=== PATIENT | male | born 1950 | race Hispanic/Latino ===

== ENCOUNTER 2019-12-01 10:27 | Outpatient (CLI) | payer MEDICARE, OTHER ==
--- NOTE | 2019-12-01 10:53 | RAD ---
Right lower leg 2 views HISTORY: Pain. FINDINGS: Tibia and fibula are intact. No acute fracture, dislocation, or aggressive osseous erosions. No radiopaque foreign bodies are evident. IMPRESSION : No abnormalities are demonstrated.
== END 2019-12-01 10:28 | disposition home or self-care (01) ==
LOC: BICRAD 10:27
PROVIDERS: ATTEND Family Medicine
DX: M79.661 Pain in right lower leg (principal)
CPT/HCPCS: 36415; 80053; 80061; 81001; 85025

== ENCOUNTER 2024-02-14 11:05 | Observation (INO) | payer MEDICARE ==
[2024-02-14 11:45] LABS: #Basophils 0.03 10x3/uL (0.0-0.2); #Eosinphils Less than 0.03 10x3/uL (0.0-0.7); %Basophils 0.6 % (0.0-1.0); %Lymphocytes 16.5 % (21.0-51.0); %Monocytes 7.3 % (0.0-10.0); %Neutrophils 75.4 % (42.0-75.0); Hematocrit 38.2 % (42.0-52.0); Hemoglobin 12.6 g/dL (14.0-18.0); Mean Corpuscular Hemoglobin 29.1 pg (27.0-31.0); Mean Corpuscular Volume 88.2 fL (78.0-98.0); Mean Platelet Volume 9.9 fL (7.4-10.4); Platelet Count 141 10x3/uL (130-400); RBC Distribution Width 14.4 % (11.5-14.5); Red Blood Cell (RBC) Count 4.33 mill/uL (4.70-6.10)
[2024-02-14 12:47] LABS: ALT (SGPT) 55 U/L (8-55); AST (SGOT) 62 U/L (5-34); Albumin 3.5 g/dL (3.4-4.8); Alkaline Phosphatase 104 U/L (40-110); Anion Gap 10 mmol/L (10-20); BUN (Urea Nitrogen) 12 mg/dL (8.4-25.7); Bilirubin, Total 0.5 mg/dL (0.2-1.2); Calc. Creatinine Clearance 0 mL/min (70-130); Calcium 9.1 mg/dL (7.8-10.44); Carbon Dioxide 25 mmol/L (23-31); Chloride 111 mmol/L (98-107); Estimated GFR 77; Globulin 3.2 g/dL (2.4-3.5); Glucose 133 mg/dL (83-110); Lipase 29 U/L (8-78); Potassium 4.1 mmol/L (3.5-5.1); Protein, Total 6.7 g/dL (5.8-8.1); Sodium 142 mmol/L (136-145)
[2024-02-14 13:50] LABS: Troponin I Less than 0.010 ng/mL (< 0.028)
[2024-02-14] MEDS ORDERED: Aspirin Chewable 81 MG TAB ONE (15:06)
[2024-02-14] MEDS ORDERED: Nitroglycerin 2% Ointment 1 INCH/1 GM Packet ONE (15:06)
[2024-02-14] MEDS ORDERED: Nitroglycerin 0.4 MG TAB (25 Tab Bottle) SL PRN (16:44)
[2024-02-14 17:32] LABS: Magnesium 1.9 mg/dL (1.6-2.6)
[2024-02-14 17:37] LABS: Troponin I 0.011 ng/mL (< 0.028)
[2024-02-14] MEDS ORDERED: Magnesium 2 GM/50 ML BAG (IN WATER) ONE (20:13)
[2024-02-14] MEDS: Magnesium 2 GM/50 ML(in water) 2 GM in Premix 1 BAG IVPB SCH (20:30)
[2024-02-14 21:02] LABS: Troponin I Less than 0.010 ng/mL (< 0.028)
[2024-02-14 21:26] VITALS: BMI 23.7
[2024-02-14] MEDS: Tamsulosin HCl 0.4 MG CAP PO SCH (21:55)
[2024-02-15] MEDS: Mesalamine DR 400 mg Capsule PO SCH (08:31)
[2024-02-15] MEDS: Acetaminophen 325 MG TAB PO PRN (21:30)
[2024-02-16] MEDS ORDERED: Regadenoson 0.4 MG/5 ML SYRINGE ONE (09:40)
[2024-02-16 12:13] VITALS: BP 127/75; TEMP 97.2
== END 2024-02-16 13:09 | disposition home or self-care (01) ==
LOC: ERS 11:05 → ERHOLD 16:34 → 2SW 21:18
PROVIDERS: ADMIT Internal Medicine; ATTEND Internal Medicine
PROC: B246ZZZ Ultrasonography of Right and Left Heart (ICD-10-PCS; principal; 2024-02-14)
DX: R07.89 Other chest pain (principal); I10 Essential (primary) hypertension; N40.0 Benign prostatic hyperplasia without lower urinary tract symptoms; I12.9 Hypertensive chronic kidney disease with stage 1 through stage 4 chronic kidney disease, or unspecified chronic kidney disease; N18.2 Chronic kidney disease, stage 2 (mild); D63.1 Anemia in chronic kidney disease; E83.42 Hypomagnesemia; Z87.19 Personal history of other diseases of the digestive system; Z98.890 Other specified postprocedural states; F17.220 Nicotine dependence, chewing tobacco, uncomplicated; Z79.899 Other long term (current) drug therapy
CPT/HCPCS: 71046; 78452; 80053; 83690; 83735; 84484 ×2; 85025; 93005; 93017; 93306; 94760 ×2; 99285; A9502; J2785 ×2; J3475; 36415; 96374; G0378

== ENCOUNTER 2024-04-20 14:49 | Outpatient (CLI) | payer MEDICARE | END 2024-04-20 14:50 | disposition home or self-care (01) | LOC: BICULT 14:49 | PROVIDERS: ATTEND Internal Medicine Nephrology | DX: N28.1 Cyst of kidney, acquired (principal); N32.89 Other specified disorders of bladder | CPT/HCPCS: 76770 ==

== ENCOUNTER 2024-05-11 09:20 | Outpatient (CLI) | payer MEDICARE ==
[2024-05-11 10:19] LABS: #Basophils 0.05 10x3/uL (0.0-0.2); %Basophils 0.8 % (0.0-1.0); %Eosinophils 0.7 % (0.0-10.0); %Lymphocytes 12.8 % (21.0-51.0); %Monocytes 7.9 % (0.0-10.0); %Neutrophils 77.3 % (42.0-75.0); Hematocrit 41.7 % (42.0-52.0); Hemoglobin 13.5 g/dL (14.0-18.0); Mean Corpuscular HGB CONC 32.4 g/dL (32.0-36.0); Mean Corpuscular Hemoglobin 29.2 pg (27.0-31.0); Mean Corpuscular Volume 90.3 fL (78.0-98.0); Mean Platelet Volume 9.5 fL (7.4-10.4); Platelet Count 169 10x3/uL (130-400); RBC Distribution Width 13.2 % (11.5-14.5); Red Blood Cell (RBC) Count 4.62 mill/uL (4.70-6.10)
[2024-05-11 10:39] LABS: ALT (SGPT) 40 U/L (8-55); AST (SGOT) 40 U/L (5-34); Albumin 3.4 g/dL (3.4-4.8); Alkaline Phosphatase 88 U/L (40-110); Anion Gap 10 mmol/L (10-20); BUN (Urea Nitrogen) 9 mg/dL (8.4-25.7); Bilirubin, Direct 0.3 mg/dL (0.1-0.3); Calc. Creatinine Clearance 0 mL/min (70-130); Calcium 9.3 mg/dL (7.8-10.44); Carbon Dioxide 29 mmol/L (23-31); Chloride 106 mmol/L (98-107); Estimated GFR 87; Globulin 3.6 g/dL (2.4-3.5); Glucose 114 mg/dL (83-110); Potassium 4.1 mmol/L (3.5-5.1); Sodium 141 mmol/L (136-145)
== END 2024-05-11 09:21 | disposition home or self-care (01) ==
LOC: LABBT 09:20
PROVIDERS: ATTEND Internal Medicine Cardiovascular Disease
DX: Z01.818 Encounter for other preprocedural examination (principal)
CPT/HCPCS: 80053; 80076; 85025; 93005; 93010

== ENCOUNTER 2024-05-18 05:50 | Day surgery (SDC) | payer MEDICARE ==
[2024-05-11 09:29] VITALS: BMI 22.2
[2024-05-18 07:09] LABS: Cardiac Risk 5.2 (Less than 4.5)
[2024-05-18] MEDS ORDERED: fentaNYL 50 mcg/mL 1 mL Vial ONE (08:26)
[2024-05-18] MEDS ORDERED: Nitroglycerin 50 MG/250 ML BOT 250 ML ONE (08:26)
[2024-05-18] MEDS ORDERED: Heparin 10,000 UNITS/ 10 ML VIAL ONE (08:26)
[2024-05-18] MEDS ORDERED: Midazolam HCl 2 mg/2 ml Vial ONE (08:26)
[2024-05-18] MEDS ORDERED: Verapamil 5 MG/2 ML VIAL ONE (08:26)
[2024-05-18] MEDS ORDERED: Iopamidol 370 76% 100 ML VIAL ONE (09:06)
== END 2024-05-18 12:25 | disposition home or self-care (01) ==
LOC: SDC 05:50
PROVIDERS: ATTEND Internal Medicine Cardiovascular Disease
PROC: 4A023N7 Measurement of Cardiac Sampling and Pressure, Left Heart, Percutaneous Approach (ICD-10-PCS; principal; 2024-05-18)
DX: R07.9 Chest pain, unspecified (principal)
CPT/HCPCS: 80061; 93458; C1769 ×2; C1894; J1644; J2250; J3010; 36415; 99152; 99153; Q9967

== ENCOUNTER 2024-06-02 09:14 | Outpatient (CLI) | payer MEDICARE | END 2024-06-02 09:15 | disposition home or self-care (01) | LOC: LABBT 09:14 | PROVIDERS: ATTEND Student in an Organized Health Care Education/Training Program | DX: Z01.818 Encounter for other preprocedural examination (principal); I25.10 Atherosclerotic heart disease of native coronary artery without angina pectoris | CPT/HCPCS: 71046 ==

== ENCOUNTER 2024-06-02 09:30 | Inpatient (IN) | payer MEDICARE ==
[2024-06-02 11:38] LABS: #Basophils 0.07 10x3/uL (0.0-0.2); %Eosinophils 0.6 % (0.0-10.0); %Lymphocytes 10.5 % (21.0-51.0); %Monocytes 6.3 % (0.0-10.0); %Neutrophils 81.2 % (42.0-75.0); Hematocrit 43.1 % (42.0-52.0); Hemoglobin 13.9 g/dL (14.0-18.0); Mean Corpuscular HGB CONC 32.3 g/dL (32.0-36.0); Mean Corpuscular Hemoglobin 28.3 pg (27.0-31.0); Mean Corpuscular Volume 87.8 fL (78.0-98.0); Platelet Count 236 10x3/uL (130-400); RBC Distribution Width 12.8 % (11.5-14.5); Red Blood Cell (RBC) Count 4.91 mill/uL (4.70-6.10)
[2024-06-03] MEDS ORDERED: PROPOFOL 20 ML ONE (06:24)
[2024-06-03] MEDS ORDERED: Aminocaproic Acid 5 GM/20 ML VIAL ONE ×2 (06:24→07:44)
[2024-06-03] MEDS ORDERED: Midazolam HCl 2 mg/2 ml Vial ONE (06:24)
[2024-06-03] MEDS ORDERED: Fentanyl 250 MCG/5 ML VIAL ONE ×2 (06:24→08:22)
[2024-06-03] MEDS ORDERED: Etomidate 40 MG (20 mL) VIAL ONE (06:24)
[2024-06-03] MEDS ORDERED: PHENYLEPHRINE-NS 100 MCG/ML 10 ML SYRINGE ONE ×2 (06:25→06:31)
[2024-06-03] MEDS ORDERED: NOREPINEPHRINE 8 MG/250 ML-D5W 250 ML ONE (06:25)
[2024-06-03] MEDS ORDERED: Dexamethasone 4 mg/ml Vial ONE (06:29)
[2024-06-03] MEDS ORDERED: EPINEPHrine 1 MG/ML VIAL ONE (06:29)
[2024-06-03] MEDS ORDERED: Bupivacaine PF 0.5% 30 ML VIAL ONE (06:30)
[2024-06-03] MEDS ORDERED: Albumin 5% 0 ML ONE (06:30)
[2024-06-03] MEDS ORDERED: Vecuronium 10 MG VIAL ONE (06:49)
[2024-06-03] MEDS ORDERED: Heparin 10,000 UNITS/1 ML VIAL 30,000 UNITS in Sodium Chloride 0.9% 1,000 ML FS SCH (07:15)
[2024-06-03 07:20] LABS: Anion Gap 11 mmol/L (10-20); BUN (Urea Nitrogen) 12 mg/dL (8.4-25.7); Calc. Creatinine Clearance 70 mL/min (70-130); Calcium 9.2 mg/dL (7.8-10.44); Carbon Dioxide 29 mmol/L (23-31); Chloride 105 mmol/L (98-107); Estimated GFR 91; Glucose 115 mg/dL (83-110); Potassium 3.8 mmol/L (3.5-5.1); Sodium 141 mmol/L (136-145)
[2024-06-03] MEDS ORDERED: CEFAZOLIN 2 GM VIAL ONE (07:25)
[2024-06-03] MEDS ORDERED: Thrombin 5000 UNITS/5 ML VIAL ONE (07:44)
[2024-06-03] MEDS ORDERED: Heparin 5,000 UNITS/ML VIAL ONE (07:44)
[2024-06-03] MEDS ORDERED: Magnesium 5 GM/10 ML VIAL ONE (07:44)
[2024-06-03] MEDS ORDERED: Papaverine 60 MG/2 ML VIAL ONE (07:44)
[2024-06-03] MEDS ORDERED: Mannitol 12.5 GM/50 ML ONE (07:44)
[2024-06-03] MEDS ORDERED: Protamine Sulfate 250 MG/25 ML VIAL ONE (07:44)
[2024-06-03] MEDS ORDERED: Calcium Chloride 1 GM/10 ML Abboject SYRINGE ONE (07:44)
[2024-06-03] MEDS ORDERED: Sodium Bicarb 50 mEq/50 ML VIAL ONE (07:44)
[2024-06-03] MEDS ORDERED: Lidocaine 2% PF 100 mg/5 ml Syringe ONE (07:44)
[2024-06-03] MEDS ORDERED: Heparin 30,000 units/30 ml VIAL ONE (07:44)
[2024-06-03] MEDS ORDERED: Rocuronium Bromide 10 MG/ML (10ML VIAL) ONE (07:44)
[2024-06-03] MEDS ORDERED: Esmolol 100 MG/10 ML VIAL ONE (07:44)
[2024-06-03] MEDS ORDERED: Potassium Chloride 60 mEq (30 mL) VIAL ONE (07:44)
[2024-06-03] MEDS ORDERED: Vancomycin 1 GM VIAL ONE (07:44)
[2024-06-03] MEDS ORDERED: Nitroglycerin 50 MG/250 ML BOT 250 ML IVPB PRN (11:25)
[2024-06-03] MEDS ORDERED: fentaNYL 50 mcg/mL 1 mL Vial SLOW IVP PRN (11:25)
[2024-06-03] MEDS ORDERED: niCARdipine 25 MG in Sodium Chloride 0.9% 250 ML 250 ML IVPB PRN (11:25)
[2024-06-03] MEDS ORDERED: hydrALAZINE 20 MG/ML VIAL SLOW IVP PRN (11:25)
[2024-06-03] MEDS ORDERED: Bisacodyl 10 MG SUPP PR PRN (11:25)
[2024-06-03] MEDS ORDERED: Phenylephrine 40 MG in Sodium Chloride 0.9% 250 ML 250 ML IVPB PRN (11:25)
[2024-06-03] MEDS ORDERED: Bisacodyl 5 MG TAB PO PRN (11:25)
[2024-06-03] MEDS ORDERED: Ondansetron PF 4 MG/2 ML Vial IVP PRN (11:25)
[2024-06-03] MEDS ORDERED: Ipratropium/Albuterol 3 ML NEB NEB PRN (11:25)
[2024-06-03] MEDS ORDERED: Mag-Al 1200 mg/1200 mg/30 ML UDCUP PO PRN (11:25)
[2024-06-03] MEDS ORDERED: Potassium Chloride 20 MEQ (100 mL) BAG IVPB PRN (11:25)
[2024-06-03] MEDS ORDERED: Guaifenesin DM 100-10/5 ML UDCUP PO PRN (11:25)
[2024-06-03] MEDS ORDERED: Promethazine HCl 25 MG/ML VIAL IM PRN (11:25)
[2024-06-03] MEDS ORDERED: Glucagon 1 MG/ML KIT SC PRN (11:45)
[2024-06-03] MEDS ORDERED: Dextrose 5% in Water 1,000 ML IV PRN (11:45)
[2024-06-03] MEDS ORDERED: Dextrose 50% Abboject 50 ML SYRINGE SLOW IVP PRN (11:45)
[2024-06-03] MEDS ORDERED: INSULIN REGULAR IN 0.9 % NACL 100 UNITS in Premix 1 BAG IVPB SCH (11:45)
[2024-06-03] MEDS ORDERED: fentaNYL PF 100 MCG/2 ML SYRINGE ONE (11:54)
[2024-06-03 12:07] LABS: Actual Bicarbonate (HCO3a) 21.1 mEq/L (22-28); Base Excess (BEa) -2.7 mEq/L (-2.0 to +3.0); Calcium, Ionized (arterial) 1.08 mmol/L (1.12-1.30); O2 Tension (PaO2), arterial 203.1 mmHg (> 70.0); Potassium - ABG Lab 4.07 mmol/L (3.70-5.30)
[2024-06-03 12:12] LABS: Puncture Site Arterial Line
[2024-06-03 12:19] LABS: #Basophils 0.05 10x3/uL (0.0-0.2); %Basophils 0.4 % (0.0-1.0); %Eosinophils 0.4 % (0.0-10.0); %Lymphocytes 10.9 % (21.0-51.0); %Monocytes 3.7 % (0.0-10.0); %Neutrophils 83.5 % (42.0-75.0); Hematocrit 33.1 % (42.0-52.0); Hemoglobin 10.9 g/dL (14.0-18.0); Mean Corpuscular HGB CONC 32.9 g/dL (32.0-36.0); Mean Corpuscular Hemoglobin 28.6 pg (27.0-31.0); Mean Corpuscular Volume 86.9 fL (78.0-98.0); Mean Platelet Volume 9.5 fL (7.4-10.4); Platelet Count 152 10x3/uL (130-400); RBC Distribution Width 12.8 % (11.5-14.5); Red Blood Cell (RBC) Count 3.81 mill/uL (4.70-6.10)
[2024-06-03] MEDS: Insulin Regular, Human 100 UNIT/ML 10 ML VIAL SC PRN (12:24)
[2024-06-03] MEDS: Magnesium 2 GM/50 ML(in water) 2 GM in Premix 1 BAG IVPB SCH (12:25)
[2024-06-03] MEDS: Albumin 5% 12.5 GM (250 mL) BOT IVPB PRN (12:25)
[2024-06-03] MEDS: D5 1/2 NS w/20 mEq KCL 1,000 ML IV SCH (12:27)
[2024-06-03 12:32] LABS: INR-International Normal Ratio 1.4; Prothrombin Time 17.6 sec (12.0-14.7)
[2024-06-03 12:33] LABS: PTT 34.6 sec (22.9-36.1)
[2024-06-03 12:38] LABS: Anion Gap 9 mmol/L (10-20); BUN (Urea Nitrogen) 10 mg/dL (8.4-25.7); Calc. Creatinine Clearance 87 mL/min (70-130); Calcium 7.4 mg/dL (7.8-10.44); Carbon Dioxide 21 mmol/L (23-31); Chloride 115 mmol/L (98-107); Estimated GFR 98; Glucose 145 mg/dL (83-110); Potassium 4.2 mmol/L (3.5-5.1); Sodium 141 mmol/L (136-145)
[2024-06-03 12:41] VITALS: BMI 24.5
[2024-06-03] MEDS: Post-Op Insulin Drip Protocol IVPB ONE (13:14)
[2024-06-03] MEDS: CEFAZOLIN 2 GM in Sodium Chloride 0.9% 100 ML IVPB SCH (14:08)
[2024-06-03] MEDS ORDERED: FLU (Fluad Triv) TS24-25 (65UP)/MF59C/PF 45 MCG/0.5 ML Syringe IM ONE (14:30)
[2024-06-03] MEDS: NOREPINEPHRINE 8 MG/250 ML-D5W 250 ML IVPB PRN (16:11)
[2024-06-03 17:40] LABS: Hematocrit 31.7 % (42.0-52.0); Hemoglobin 10.4 g/dL (14.0-18.0)
[2024-06-03 17:50] LABS: Potassium 4.1 mmol/L (3.5-5.1)
[2024-06-03 18:34] LABS: Actual Bicarbonate (HCO3a) 21.4 mEq/L (22-28); Base Excess (BEa) -2.2 mEq/L (-2.0 to +3.0); CO2 Tension 32.9 mmHg (35.0-45.0); Calcium, Ionized (arterial) 1.07 mmol/L (1.12-1.30); Carboxyhemoglobin (COHb) 0.3 gm% (0.0-3.0); Hematocrit-ABG 31 % (42.0-52.0); Hemoglobin (Hb) 10.4 g/dL (14.0-18.0); O2 Tension (PaO2), arterial 112.9 mmHg (> 70.0); Potassium - ABG Lab 3.81 mmol/L (3.70-5.30); pH, Arterial 7.432 (7.35-7.45)
[2024-06-03] MEDS: fentaNYL 50 mcg/mL 1 mL Vial SLOW IVP PRN (18:45)
[2024-06-03 18:46] LABS: ALV-art Gradient 131.175 mmHg (0-20); Puncture Site Arterial Line
[2024-06-03] MEDS: Famotidine/PF 20 mg/2ml Vial SLOW IVP SCH (20:59)
[2024-06-03] MEDS: Atorvastatin Calcium 20 MG TAB PO SCH (23:14)
[2024-06-04 03:48] LABS: #Basophils Less than 0.03 10x3/uL (0.0-0.2); #Eosinophils Less than 0.03 10x3/uL (0.0-0.7); %Basophils 0.1 % (0.0-1.0); %Lymphocytes 4.1 % (21.0-51.0); %Monocytes 5.7 % (0.0-10.0); %Neutrophils 89.5 % (42.0-75.0); Hematocrit 32.2 % (42.0-52.0); Hemoglobin 10.5 g/dL (14.0-18.0); Mean Corpuscular HGB CONC 32.6 g/dL (32.0-36.0); Mean Corpuscular Hemoglobin 28.8 pg (27.0-31.0); Mean Corpuscular Volume 88.2 fL (78.0-98.0); Mean Platelet Volume 9.3 fL (7.4-10.4); Platelet Count 236 10x3/uL (130-400); RBC Distribution Width 12.8 % (11.5-14.5); Red Blood Cell (RBC) Count 3.65 mill/uL (4.70-6.10)
[2024-06-04] MEDS: Albumin 5% 12.5 GM (250 mL) BOT IVPB PRN (04:07)
[2024-06-04 04:12] LABS: Anion Gap 10 mmol/L (10-20); BUN (Urea Nitrogen) 8 mg/dL (8.4-25.7); Calc. Creatinine Clearance 77 mL/min (70-130); Calcium 8.2 mg/dL (7.8-10.44); Carbon Dioxide 25 mmol/L (23-31); Chloride 107 mmol/L (98-107); Estimated GFR 93; Glucose 179 mg/dL (83-110); Potassium 4.3 mmol/L (3.5-5.1); Sodium 138 mmol/L (136-145)
[2024-06-04 04:16] LABS: Phosphorus 2.8 mg/dL (2.3-4.7)
[2024-06-04] MEDS: traMADol HCl 50 MG TAB PO PRN (07:36)
[2024-06-04] MEDS: Lidocaine 4% Patch TD SCH (09:02)
[2024-06-04] MEDS: Senokot S 8.6-50 MG TAB PO SCH (09:02)
[2024-06-04] MEDS: Magnesium 2 GM/50 ML(in water) 2 GM in Premix 1 BAG IVPB SCH (09:02)
[2024-06-04] MEDS: Aspirin Chewable 81 MG TAB PO SCH (09:03)
[2024-06-04] MEDS: Tamsulosin HCl 0.4 MG CAP PO SCH ×2 (09:03→20:06)
[2024-06-04] MEDS: Mesalamine DR 400 mg Capsule PO SCH (09:26)
[2024-06-04] MEDS ORDERED: Insulin Glargine 30 UNITS/0.3 ML VIAL SC PRN (11:35)
[2024-06-04] MEDS ORDERED: Mineral Oil ENEMA PR PRN (13:09)
[2024-06-04] MEDS ORDERED: Artificial Tear Ophth Sol 15 ML BOT EA EYE PRN (13:09)
[2024-06-04] MEDS ORDERED: Nitroglycerin 0.4 MG TAB (25 Tab Bottle) SL PRN (13:09)
[2024-06-04 14:22] VITALS: BMI 24.3
[2024-06-04] MEDS: Morphine 2 MG/ML VIAL SLOW IVP PRN (15:47)
[2024-06-04] MEDS: Acetaminophen 325 MG TAB PO PRN (20:04)
[2024-06-04] MEDS: diphenhydrAMINE 25 MG CAP PO PRN (20:05)
[2024-06-04] MEDS: Transdermal Patch Removal TOP SCH (20:06)
[2024-06-05 04:01] LABS: #Basophils 0.05 10x3/uL (0.0-0.2); %Basophils 0.4 % (0.0-1.0); %Eosinophils 0.2 % (0.0-10.0); %Monocytes 7.5 % (0.0-10.0); %Neutrophils 82.3 % (42.0-75.0); Hematocrit 28.2 % (42.0-52.0); Mean Corpuscular HGB CONC 31.9 g/dL (32.0-36.0); Mean Corpuscular Hemoglobin 28.5 pg (27.0-31.0); Mean Corpuscular Volume 89.2 fL (78.0-98.0); Platelet Count 149 10x3/uL (130-400); RBC Distribution Width 12.8 % (11.5-14.5); Red Blood Cell (RBC) Count 3.16 mill/uL (4.70-6.10)
[2024-06-05 04:19] LABS: Anion Gap 11 mmol/L (10-20); BUN (Urea Nitrogen) 11 mg/dL (8.4-25.7); Calc. Creatinine Clearance 74 mL/min (70-130); Carbon Dioxide 25 mmol/L (23-31); Chloride 102 mmol/L (98-107); Estimated GFR 92; Glucose 131 mg/dL (83-110); Magnesium 2.2 mg/dL (1.6-2.6); Phosphorus 2.3 mg/dL (2.3-4.7); Potassium 4.1 mmol/L (3.5-5.1); Sodium 134 mmol/L (136-145)
[2024-06-05] MEDS: Metoprolol Tartrate 25 MG TAB PO SCH (08:45)
[2024-06-05] MEDS: Famotidine 20 MG TAB PO SCH (08:46)
[2024-06-06 04:05] LABS: #Basophils 0.04 10x3/uL (0.0-0.2); #Eosinophils Less than 0.03 10x3/uL (0.0-0.7); %Basophils 0.4 % (0.0-1.0); %Eosinophils 0.2 % (0.0-10.0); %Lymphocytes 11.3 % (21.0-51.0); %Monocytes 6.8 % (0.0-10.0); %Neutrophils 80.9 % (42.0-75.0); Hematocrit 25.7 % (42.0-52.0); Hemoglobin 8.4 g/dL (14.0-18.0); Mean Corpuscular HGB CONC 32.7 g/dL (32.0-36.0); Mean Corpuscular Hemoglobin 28.1 pg (27.0-31.0); Mean Platelet Volume 10.2 fL (7.4-10.4); Platelet Count 148 10x3/uL (130-400); RBC Distribution Width 12.6 % (11.5-14.5); Red Blood Cell (RBC) Count 2.99 mill/uL (4.70-6.10)
[2024-06-06 04:07] LABS: Anion Gap 10 mmol/L (10-20); BUN (Urea Nitrogen) 15 mg/dL (8.4-25.7); Calc. Creatinine Clearance 82 mL/min (70-130); Carbon Dioxide 25 mmol/L (23-31); Chloride 101 mmol/L (98-107); Estimated GFR 95; Glucose 115 mg/dL (83-110); Magnesium 2.1 mg/dL (1.6-2.6); Phosphorus 2.3 mg/dL (2.3-4.7); Potassium 3.9 mmol/L (3.5-5.1); Sodium 132 mmol/L (136-145)
[2024-06-06] MEDS: traMADol HCl 50 MG TAB PO PRN (09:20)
[2024-06-06] MEDS: Furosemide 20 MG (2 mL) VIAL SLOW IVP SCH (09:21)
[2024-06-06] MEDS ORDERED: Rosuvastatin 10 MG TAB PO SCH (21:00)
[2024-06-06] MEDS: Rosuvastatin 10 MG TAB PO SCH (21:10)
[2024-06-07 04:07] LABS: #Basophils 0.04 10x3/uL (0.0-0.2); %Basophils 0.5 % (0.0-1.0); %Eosinophils 0.8 % (0.0-10.0); %Lymphocytes 11.9 % (21.0-51.0); %Neutrophils 79.4 % (42.0-75.0); Hematocrit 26.2 % (42.0-52.0); Hemoglobin 8.6 g/dL (14.0-18.0); Mean Corpuscular HGB CONC 32.8 g/dL (32.0-36.0); Mean Corpuscular Hemoglobin 28.1 pg (27.0-31.0); Mean Corpuscular Volume 85.6 fL (78.0-98.0); Mean Platelet Volume 10.3 fL (7.4-10.4); Platelet Count 149 10x3/uL (130-400); RBC Distribution Width 12.6 % (11.5-14.5); Red Blood Cell (RBC) Count 3.06 mill/uL (4.70-6.10)
[2024-06-07 04:24] LABS: Anion Gap 12 mmol/L (10-20); BUN (Urea Nitrogen) 16 mg/dL (8.4-25.7); Calc. Creatinine Clearance 73 mL/min (70-130); Calcium 8.1 mg/dL (7.8-10.44); Carbon Dioxide 24 mmol/L (23-31); Chloride 102 mmol/L (98-107); Estimated GFR 92; Glucose 111 mg/dL (83-110); Magnesium 1.9 mg/dL (1.6-2.6); Phosphorus 3.1 mg/dL (2.3-4.7); Potassium 3.8 mmol/L (3.5-5.1); Sodium 134 mmol/L (136-145)
[2024-06-07] MEDS: Lisinopril 2.5 MG TAB PO SCH (09:50)
[2024-06-08 04:48] LABS: #Basophils 0.04 10x3/uL (0.0-0.2); %Basophils 0.7 % (0.0-1.0); %Lymphocytes 7.8 % (21.0-51.0); %Monocytes 9.2 % (0.0-10.0); %Neutrophils 80.8 % (42.0-75.0); Hematocrit 27.8 % (42.0-52.0); Mean Corpuscular HGB CONC 32.4 g/dL (32.0-36.0); Mean Corpuscular Hemoglobin 28.5 pg (27.0-31.0); Mean Platelet Volume 10.1 fL (7.4-10.4); Platelet Count 180 10x3/uL (130-400); RBC Distribution Width 12.5 % (11.5-14.5); Red Blood Cell (RBC) Count 3.16 mill/uL (4.70-6.10)
[2024-06-08 05:03] LABS: Anion Gap 15 mmol/L (10-20); BUN (Urea Nitrogen) 15 mg/dL (8.4-25.7); Calc. Creatinine Clearance 69 mL/min (70-130); Calcium 8.3 mg/dL (7.8-10.44); Carbon Dioxide 24 mmol/L (23-31); Chloride 99 mmol/L (98-107); Estimated GFR 91; Glucose 105 mg/dL (83-110); Potassium 4.2 mmol/L (3.5-5.1); Sodium 134 mmol/L (136-145)
[2024-06-08 07:48] VITALS: TEMP 98.1
[2024-06-08 14:20] VITALS: BP 108/69
[2024-06-09 14:16] LABS: Actual Bicarbonate (HCO3a) 21.7 mEq/L (22-28); Analyzer IN Cardio OR; Base Excess (BEa) -2.9 mEq/L (-2.0 to +3.0); Calcium, Ionized (arterial) 1.16 mmol/L (1.12-1.30); Carboxyhemoglobin (COHb) 0.1 gm% (0.0-3.0); Hematocrit-ABG 36 % (42.0-52.0); Hemoglobin (Hb) 12.2 g/dL (14.0-18.0); O2 Tension (PaO2), arterial 471.2 mmHg (> 70.0); pH, Arterial 7.386 (7.35-7.45)
[2024-06-09 14:16] LABS: Actual Bicarbonate (HCO3a) 23.7 mEq/L (22-28); Analyzer IN Cardio OR; Base Excess (BEa) -1.4 mEq/L (-2.0 to +3.0); CO2 Tension 41.6 mmHg (35.0-45.0); Calcium, Ionized (arterial) 1.07 mmol/L (1.12-1.30); Carboxyhemoglobin (COHb) 0.3 gm% (0.0-3.0); Hematocrit-ABG 28 % (42.0-52.0); Hemoglobin (Hb) 9.6 g/dL (14.0-18.0); O2 Tension (PaO2), arterial 469.9 mmHg (> 70.0); Potassium - ABG Lab 5.23 mmol/L (3.70-5.30); pH, Arterial 7.374 (7.35-7.45)
[2024-06-09 14:16] LABS: Actual Bicarbonate (HCO3a) 22.6 mEq/L (22-28); Analyzer IN Cardio OR; Base Excess (BEa) -0.3 mEq/L (-2.0 to +3.0); CO2 Tension 31.7 mmHg (35.0-45.0); Carboxyhemoglobin (COHb) 0.1 gm% (0.0-3.0); Hematocrit-ABG 36 % (42.0-52.0); Hemoglobin (Hb) 12.1 g/dL (14.0-18.0); O2 Tension (PaO2), arterial 441.9 mmHg (> 70.0); Potassium - ABG Lab 3.68 mmol/L (3.70-5.30); pH, Arterial 7.471 (7.35-7.45)
[2024-06-09 14:17] LABS: Actual Bicarbonate (HCO3a) 19.4 mEq/L (22-28); Analyzer IN Cardio OR; Base Excess (BEa) -4.6 mEq/L (-2.0 to +3.0); CO2 Tension 31.9 mmHg (35.0-45.0); Calcium, Ionized (arterial) 1.09 mmol/L (1.12-1.30); Carboxyhemoglobin (COHb) 0.3 gm% (0.0-3.0); Hematocrit-ABG 30 % (42.0-52.0); Hemoglobin (Hb) 10.2 g/dL (14.0-18.0); O2 Tension (PaO2), arterial 303.5 mmHg (> 70.0); Potassium - ABG Lab 4.18 mmol/L (3.70-5.30); pH, Arterial 7.401 (7.35-7.45)
[2024-06-09 14:17] LABS: Puncture Site Arterial Line
[2024-06-09 14:17] LABS: Actual Bicarbonate (HCO3a) 26.3 mEq/L (22-28); Analyzer IN Cardio OR; Base Excess (BEa) -0.1 mEq/L (-2.0 to +3.0); CO2 Tension 51.8 mmHg (35.0-45.0); Calcium, Ionized (arterial) 1.04 mmol/L (1.12-1.30); Carboxyhemoglobin (COHb) 0.3 gm% (0.0-3.0); Hematocrit-ABG 27 % (42.0-52.0); Hemoglobin (Hb) 9.3 g/dL (14.0-18.0); O2 Tension (PaO2), arterial 483.8 mmHg (> 70.0); Potassium - ABG Lab 5.31 mmol/L (3.70-5.30); pH, Arterial 7.324 (7.35-7.45)
[2024-06-09 14:17] LABS: Puncture Site Arterial Line
[2024-06-09 14:18] LABS: Puncture Site Arterial Line
[2024-06-09 14:18] LABS: Puncture Site Arterial Line
[2024-06-09 14:18] LABS: Puncture Site Arterial Line
== END 2024-06-08 12:42 | disposition home or self-care (01) | DRG 236 ==
LOC: SURG A 06-03 06:15 → CCU 06-03 11:35 → PCU 06-04 15:15
PROVIDERS: ADMIT Student in an Organized Health Care Education/Training Program; ATTEND Student in an Organized Health Care Education/Training Program
PROC: 02100Z9 Bypass Coronary Artery, One Artery from Left Internal Mammary, Open Approach (ICD-10-PCS; principal; 2024-06-03)
PROC: 021009W Bypass Coronary Artery, One Artery from Aorta with Autologous Venous Tissue, Open Approach (ICD-10-PCS; 2024-06-03)
PROC: 06BQ4ZZ Excision of Left Saphenous Vein, Percutaneous Endoscopic Approach (ICD-10-PCS; 2024-06-03)
PROC: 5A1221Z Performance of Cardiac Output, Continuous (ICD-10-PCS; 2024-06-03)
PROC: 02L70CK Occlusion of Left Atrial Appendage with Extraluminal Device, Open Approach (ICD-10-PCS; 2024-06-03)
DX: I25.118 Atherosclerotic heart disease of native coronary artery with other forms of angina pectoris (principal); K51.90 Ulcerative colitis, unspecified, without complications; N40.0 Benign prostatic hyperplasia without lower urinary tract symptoms; I10 Essential (primary) hypertension; Z79.899 Other long term (current) drug therapy; Z79.82 Long term (current) use of aspirin; Z98.890 Other specified postprocedural states; Z95.1 Presence of aortocoronary bypass graft; Z79.4 Long term (current) use of insulin
CPT/HCPCS: 36415; 36416; 36430; 71045; 80048; 82805; 83735; 84100; 85025; 85610; 85730; 86850; 86900; 86901; 93005; 93010; 93798; 94002; A4311; A4648; C1751; J0171; J0665; J1100; J1644; J1815; J1940; J2003; J2150; J2250; J2272; J2440; J2704; J2720; J3010; J3370; J3475; J3480; J3490; P9045; S0017

== ENCOUNTER 2025-03-11 11:04 | Outpatient (CLI) | payer MEDICARE | END 2025-03-11 11:05 | disposition home or self-care (01) | LOC: BICRAD 11:04 | PROVIDERS: ATTEND Internal Medicine Rheumatology | DX: M19.011 Primary osteoarthritis, right shoulder (principal); M19.012 Primary osteoarthritis, left shoulder ==

== ENCOUNTER 2025-04-01 12:16 | Outpatient (CLI) | payer MEDICARE ==
[2025-04-01 13:54] LABS: #Basophils 0.04 10x3/uL (0.0-0.2); #Eosinophils 0.04 10x3/uL (0.0-0.7); #Monocytes 0.37 10x3/uL (0.11-0.59); #Neutrophils 3.47 10x3/uL (1.40-6.50); %Basophils 0.8 % (0.0-1.0); %Eosinophils 0.8 % (0.0-10.0); %Lymphocytes 17.1 % (21.0-51.0); %Monocytes 7.8 % (0.0-10.0); %Neutrophils 73.3 % (42.0-75.0); Hematocrit 40.0 % (42.0-52.0); Hemoglobin 12.2 g/dL (14.0-18.0); Mean Corpuscular Hemoglobin 23.8 pg (27.0-31.0); Mean Corpuscular Volume 78.0 fL (78.0-98.0); Platelet Count 250 10x3/uL (130-400); Red Blood Cell (RBC) Count 5.13 mill/uL (4.70-6.10); White Blood Cell (WBC) Count 4.74 10x3/uL (4.8-10.8)
[2025-04-01 14:05] LABS: Bacteria/HPF None Seen HPF (None Seen); Glucose, Urine (Dipstick) Normal (Negative); Leukocyte Negative Leu/uL (Negative); Protein, Urine (Dipstick) Negative (Neg-Trace); RBC/HPF 0-3 HPF (0-3); Specific Gravity, Urine 1.018 (1.002-1.036); WBC/HPF 0-3 HPF (0-3)
[2025-04-01 14:14] LABS: Anion Gap 9 mmol/L (10-20); BUN (Urea Nitrogen) 12 mg/dL (8.4-25.7); Calc. Creatinine Clearance 0 mL/min (70-130); Calcium 9.5 mg/dL (7.8-10.44); Carbon Dioxide 30 mmol/L (23-31); Chloride 104 mmol/L (98-107); Glucose 73 mg/dL (83-110); Potassium 4.0 mmol/L (3.5-5.1); Sodium 139 mmol/L (136-145)
[2025-04-01 14:29] LABS: INR-International Normal Ratio 1.1; Prothrombin Time 14.3 sec (12.0-14.7)
[2025-04-01 14:30] LABS: PTT 33.0 sec (22.9-36.1)
== END 2025-04-01 12:17 | disposition home or self-care (01) ==
LOC: LABBT 12:16
PROVIDERS: ATTEND Urology
DX: Z01.818 Encounter for other preprocedural examination (principal); N20.0 Calculus of kidney; R39.12 Poor urinary stream; K51.90 Ulcerative colitis, unspecified, without complications
CPT/HCPCS: 80048; 81001; 85025; 85610; 85730; 87086; 93005; 93010

== ENCOUNTER 2025-04-15 07:19 | Day surgery (SDC) | payer MEDICARE ==
[2025-04-01 12:54] VITALS: BMI 21.6
[2025-04-15] MEDS ORDERED: cefTRIAXone (ROCEPHIN) 1 GM VIAL ONE (09:39)
[2025-04-15] MEDS ORDERED: fentaNYL PF 100 MCG/2 ML SYRINGE ONE ×2 (10:15→11:42)
[2025-04-15] MEDS ORDERED: PROPOFOL 20 ML ONE (10:15)
[2025-04-15] MEDS ORDERED: Lidocaine 1% PF 5 ML VIAL ONE (10:15)
[2025-04-15] MEDS ORDERED: Glycopyrrolate 0.2 MG/ML 5 ML SYRINGE ONE (11:01)
[2025-04-15] MEDS ORDERED: PHENYLEPHRINE-NS 100 MCG/ML 10 ML SYRINGE ONE (11:05)
[2025-04-15] MEDS ORDERED: Ondansetron PF 4 MG/2 ML Vial ONE (11:07)
[2025-04-15] MEDS ORDERED: Oxybutynin 5 MG TAB ONE (12:27)
== END 2025-04-15 16:03 | disposition home or self-care (01) ==
LOC: SDC 07:19
PROVIDERS: ATTEND Urology
PROC: 0V508ZZ Destruction of Prostate, Via Natural or Artificial Opening Endoscopic (ICD-10-PCS; principal; 2025-04-15)
DX: N40.1 Benign prostatic hyperplasia with lower urinary tract symptoms (principal); N13.8 Other obstructive and reflux uropathy; R39.12 Poor urinary stream; K21.9 Gastro-esophageal reflux disease without esophagitis; E78.5 Hyperlipidemia, unspecified; I12.9 Hypertensive chronic kidney disease with stage 1 through stage 4 chronic kidney disease, or unspecified chronic kidney disease; N18.9 Chronic kidney disease, unspecified; Z79.899 Other long term (current) drug therapy
CPT/HCPCS: 52601; A4333; J0696; J1100; J2405; J2704